=== PATIENT | female | born 1975 | race American Indian/Alaskan Native ===

== ENCOUNTER 2018-03-19 11:22 | Outpatient (CLI) | payer OTHER ==
[2018-03-19] MEDS ORDERED: LACTATED RINGERS 500 ML IV ONE (11:30)
[2018-03-19 12:03] LABS: Bacteria,Urine 4+ /HPF (Negative); Bilirubin,Urine NEG (Negative); Blood,Urine NEG (Negative); Color,Urine Yellow (Yellow); Mucus,Urine FEW /HPF; Protein,Urine <15 mg/dL mg/dL (Negative); Urobilinogen,Urine < 2.0 mg/dL (<2.0)
[2018-03-19 12:56] LABS: Hematocrit 36.9 % (30.3-42.9); Hemoglobin 12.2 gm/dl (10.1-14.3); Mean Corpuscular HGB Conc 33 % (30-34); Mean Corpuscular Volume 90 fl (79-97); Platelet Count 310 K/mm3 (140-440); Red Blood Count 4.12 M/mm3 (3.65-5.03); Red Cell Distribution Width 14.6 % (13.2-15.2)
[2018-03-19] MEDS ORDERED: TYLENOL PO ONE (13:41)
[2018-03-19 14:00] LABS: Alanine Aminotransferase 7 units/L (7-56); Uric Acid 3.7 mg/dL (3.5-7.6)
[2018-03-19 14:36] VITALS: BP 128/60
== END 2018-03-19 14:57 | disposition home or self-care (01) ==
LOC: TRG 11:22
PROVIDERS: ATTEND Obstetrics & Gynecology
DX: O47.02 False labor before 37 completed weeks of gestation, second trimester (principal); Z3A.24 24 weeks gestation of pregnancy
CPT/HCPCS: 36415; 59025; 81001; 82565; 82962; 83615; 84450; 84460; 84550; 85027